=== PATIENT | male | born 1985 | race African-American/Black ===

== ENCOUNTER 2016-11-11 17:09 | Inpatient (IN) | payer OTHER ==
[~2016-11-11] VITALS: Ht 190.5 cm; Wt 146.1 kg
--- NOTE | ~2016-11-11 | S ---
[facility] [place] [address] SURGICAL PATH RPT PROCEDURE Name: DELMI BENDER Room #: 441-P ADM IN M.R.#: [id number] Admission: 11/11/16 Date of : 85 Discharge: Report #: [id number] Path Case #: [id number] PATHOLOGY REPORT COLLECTION DATE: 11/12/2016 RECEIVED DATE: 11/12/2016 SUBMITTING PHYS: Dr. David Burton OTHER PHYS: Dr. Dilan Son SPECIMEN(S) RECEIVED: A.Incarcerated ventral hernia contents * * * * * * * * * * * * FINAL DIAGNOSIS: Contents of incarcerated ventral hernia: - Fibroadipose and fibrovascular connective tissue showing marked congestion and reactive changes, compatible with incarcerated hernia. (IUV:mgr; d/t: 11/15/16) PATHOLOGIST: Reyna Boyd M.D. REPORT ELECTRONICALLY SIGNED BY: Reyna Boyd M.D. DATE/TIME: 11/15/2016 16:19 * * * * * * * * * * * * GROSS PATHOLOGY: Received in formalin labeled "Delmi Bender, contents of incarcerated ventral hernia," are multiple pieces of fibroadipose tissue measuring 15.5 x 10.9 x 4.5 cm. No nodules or lesions are identified. [employer] tissue is submitted in cassette A1. (CAA; 11/12/2016) CLINICAL HISTORY: Incarcerated ventral hernia INITIAL CPT CODE(S): A; 73960 Professional services performed by [facility] at [facility] [address] [place] [address] Technical services performed by [facility] at [address] [place] [id number]. [facility] [address] [place] [address] SURGICAL PATH RPT PROCEDURE Name: DELMI BENDER Room #: 441-P ADM IN M.R.#: [id number] Admission: 11/11/16 Date of : 85 Discharge: Report #: [id number] Path Case #: [id number] [address] PHONE: [phone] DIRECTOR: Min Cline M.D. * * * END OF REPORT * * *
--- NOTE | ~2016-11-11 | O ---
[facility] [place] [address] OPERATIVE REPORT Name: DELMI BENDER Room #: 441-P [facility] IN M.R.#: [id number] Admission: 11/11/16 Attend Phys: Dilan Subramanian DO Discharge: 11/16/16 Date of : 85 Report #: [id number] THIS REPORT FOR: //name// CC: [facility] physician/PCP Dilan Subramanian DATE OF SERVICE: 11/12/2016 PREOPERATIVE DIAGNOSIS: Incarcerated ventral hernia with small-bowel obstruction. POSTOPERATIVE DIAGNOSIS: Incarcerated ventral hernia with small-bowel obstruction. OPERATIVE PROCEDURE: Laparoscopic repair of ventral incarcerated hernia and release of small-bowel obstruction. SURGEON: David Burton MD. CHIEF WHARFINGER: John Sloan MD. SECOND LAST SAWYER: Josee Stern MS3 and Mendez Madrigal MS3. INDICATIONS: A 31-year-old male who has had a supraumbilical hernia for some period of time. The patient in the last 24-48 hours has developed severe abdominal cramping pains with nausea and vomiting. He sought medical attention and was found by CT scan to have a small-bowel obstruction with ventral hernia and bowel protruding into the hernia. He was admitted, refused NG suction and has had IV fluid resuscitation and now needs emergent laparoscopic ventral hernia repair. OPERATIVE PROCEDURE: The patient had thorough discussion of procedure, benefits and risks. He gave informed consent to proceed. He was given IV antibiotics. He was brought to the operating room suite and had satisfactory induction of general endotracheal anesthesia. The patient's entire abdomen was prepped and draped in usual sterile procedure with DuraPrep solution. Initially, a 0.5% plain Naropin was injected at all trocar sites, 30 mL was utilized during the procedure. Initially, a 5 mm Visiport with a 5.0 scope was utilized to gain access to the peritoneal cavity just below the left costochondral margin. Pneumoperitoneum was then established. A 12 mm port was placed in the midportion of the abdomen directly lateral to the umbilicus. An additional 5 mm port was placed above the anterior iliac, superior iliac spine process under direct vision. Small bowel was tightly entrapped in the ventral hernia which was in the supraumbilical position. The photographs were taken and made part of the medical record. The bowel was gently grasped and retracted and pulled from the incarcerated ventral hernia site. The bowel was released. There were some [facility] [address] [place] [address] OPERATIVE REPORT Name: DELMI BENDER Room #: 441-P [facility] IN M.R.#: [id number] Admission: 11/11/16 Attend Phys: Dilan Subramanian DO Discharge: 11/16/16 Date of : 85 Report #: [id number] bruising and early ischemic changes of the bowel. The bowel was viable. Photographs were taken and made part of the medical record. Two 5 mm ports were then placed laterally on the right side of the abdomen. The preperitoneal fat was taken down with the Sonicision and sharp dissection for distance of approximately 12 cm in the vertical superior inferior position. A second small hernia was encountered at the umbilicus. The largest hernia which included the entrapped bowel was approximately 2.5-3 cm in greatest dimensions. A 15 x 20 cm echo positioning patch was then utilized and placed into the peritoneal cavity. The balloon was inflated. The patch was tacked in place with SecureStrap circumferentially. Two of the SecureStrap were used, which included 50 tacks. The echo positioning device was brought out through the mid portion through the ventral hernia and the patch was securely tacked in position to the anterior abdominal wall under direct vision. After this was completed, the echo positioning system was removed. An 0 PDS suture was placed in [id number] fashion for closure of the left mid 12 mm port site under direct vision. Hemostasis was complete. All of the preperitoneal fat had been removed from the peritoneal cavity, the trocars were then removed under direct vision. The pneumoperitoneum was deflated. The 0 PDS suture ligated in place. Skin margins were approximated with subcuticular 4-0 Monocryl. Dermabond was applied. The estimated blood loss was less than 25 mL. The patient tolerated procedure well and he returned directly to recovery room in stable and satisfactory condition. By: [id number] David Burton MD, FACS /nt
--- NOTE | ~2016-11-11 | HC ---
[facility] [place] [address] CONSULTATION Name: DELMI BENDER Room #: 441-P [facility] IN M.R.#: [id number] Admission: 11/11/16 Attend Phys: Dilan Subramanian DO Discharge: 11/16/16 Date of : 85 Report #: [id number] THIS REPORT FOR: //name// CC: [facility] physician/PCP Dilan Subramanian DATE OF SERVICE: 11/16/2016 SUBJECTIVE: This patient is 4 days postop from laparoscopic ventral hernia repair with a postoperative ileus. The patient has begun to tolerate his diet, he is passing gas and stooling. OBJECTIVE: Wounds are clean. Abdomen nondistended, possible early seroma in the supraumbilical position. ASSESSMENT AND PLAN: The patient is now in satisfactory clinical status for discharge today. The patient will proceed for discharge with pain medication. He will return to the office in 2 weeks for followup care. <ELECTRONICALLY SIGNED> By: David Burton MD, FACS 11/17/16 1128 [id number] David Burton MD, FACS /nt
--- NOTE | ~2016-11-11 | HC ---
[facility] [place] [address] CONSULTATION Name: DELMI BENDER Room #: 441-P [facility] IN M.R.#: [id number] Admission: 11/11/16 Attend Phys: Dilan Subramanian DO Discharge: 11/16/16 Date of : 85 Report #: [id number] THIS REPORT FOR: //name// CC: [facility] physician/PCP Dilan Subramanian DATE OF SERVICE: 11/12/2016 HISTORY OF PRESENT ILLNESS: I have been asked to evaluate this 31-year-old male who presented to the Emergency Department with a chief complaint of abdominal pain. The patient has been vomiting for approximately 2 days. He reports that he has had chills and diaphoresis in recent days. The patient has a known abdominal hernia in the supraumbilical position. This mass, which was soft, has now become rather firm. He has been on a fasting diet of liquids only for a couple of weeks prior to recent days in the Emergency Department. The patient has been in a state of good health until the recent onset of the severe cramping abdominal pain with vomiting. PAST MEDICAL HISTORY: Consistent with only hypertension. MEDICATIONS: No medications at home. ALLERGIES: No known drug allergies. SOCIAL HISTORY: He works for [employer]. Works from his home. Denies tobacco or alcohol use. PAST SURGICAL HISTORY: No previous abdominal surgery. REVIEW OF SYSTEMS: A 10-point review of systems essentially negative except for recent change in gastrointestinal function associated with cramping abdominal pain, nausea and vomiting. PHYSICAL EXAMINATION: GENERAL: Reveals an alert, cooperative male, NG tube is in place, IV is infusing, he is afebrile. VITAL SIGNS: Within normal limits. HEENT: Within normal limits. Extraocular movements are intact. NECK: Supple, no adenopathy. LUNGS: Clear at the bases bilaterally. CARDIOVASCULAR: Regular rate and rhythm. ABDOMEN: A 6 cm supraumbilical mass, firm to palpation, tender to palpation. Remainder of the abdominal exam is within normal limits without guarding or rebound. EXTREMITIES: Bilateral motor symmetry. [facility] [address] [place] [address] CONSULTATION Name: DELMI BENDER Room #: [facility] IN M.R.#: [id number] Admission: 11/11/16 Attend Phys: Dilan Subramanian DO Discharge: 11/16/16 Date of : 85 Report #: [id number] Review of the CT scan is consistent with an incarcerated ventral supraumbilical hernia with small-bowel obstruction. LABORATORY DATA: Demonstrates lactic acid level of 1, white count of 11,500. Remainder of his labs are within normal limits. DIAGNOSTIC IMPRESSION: Incarcerated ventral supraumbilical hernia with small-bowel obstruction. I would plan laparoscopic repair of the incarcerated ventral hernia today. Thank you for allowing us to participate in his care and we will proceed with surgery today. <ELECTRONICALLY SIGNED> By: David Burton MD, FACS 11/17/16 [id number] David Burton MD, FACS /nt
[2016-11-11 18:09] LABS: HEMOGLOBIN 14.8 gm/dL (14.0-18.0); MCH 20.8 pg (26.0-34.0); MCHC 31.4 g/dL (28.0-37.0); MCV 66.2 fL (80.0-100.0); PLATELET COUNT 339 thou/uL (150-400); RDW 17.3 % (10.5-14.5); WBC 11.5 thou/uL (4.0-11.0)
[2016-11-11 18:11] LABS: MANUAL DIFF YES
[2016-11-11 18:12] LABS: CALCIUM 9.5 mg/dL (8.5-10.1); CREATININE 1.2 mg/dL (0.6-1.3); POTASSIUM 4.1 mmol/L (3.5-5.1)
[2016-11-11 18:40] LABS: ABSOLUTE NEUTROPHILS 9.5 thou/uL (1.4-8.2); LARGE PLATELETS FEW; TOTAL CELL COUNT 100
[2016-11-11 18:41] LABS: ANISOCYTOSIS 1+
[2016-11-12 05:32] LABS: HEMATOCRIT 45.4 % (42.0-52.0); HEMOGLOBIN 14.4 gm/dL (14.0-18.0); MCHC 31.8 g/dL (28.0-37.0); MCV 66.1 fL (80.0-100.0); RBC 6.86 mil/uL (4.50-6.00); RDW 17.3 % (10.5-14.5); WBC 14.1 thou/uL (4.0-11.0)
[2016-11-12 06:02] LABS: ALBUMIN 4.1 g/dL (3.4-5.0); CALCIUM 9.4 mg/dL (8.5-10.1); CREATININE 1.4 mg/dL (0.6-1.3); TOTAL BILIRUBIN 0.6 mg/dL (<0.1-1.0); TOTAL PROTEIN 8.1 g/dL (6.4-8.2)
[2016-11-14 04:36] LABS: HEMATOCRIT 39.1 % (42.0-52.0); MCH 21.1 pg (26.0-34.0); MCHC 31.8 g/dL (28.0-37.0); MCV 66.5 fL (80.0-100.0); RBC 5.89 mil/uL (4.50-6.00); RDW 17.1 % (10.5-14.5); WBC 13.6 thou/uL (4.0-11.0)
[2016-11-14 04:42] LABS: HEMOGLOBIN 12.4 gm/dL (14.0-18.0)
[2016-11-14 04:56] LABS: ALBUMIN 3.2 g/dL (3.4-5.0); CALCIUM 8.5 mg/dL (8.5-10.1); CREATININE 1.1 mg/dL (0.6-1.3); PHOSPHORUS 3.3 mg/dL (2.5-4.9); POTASSIUM 4.1 mmol/L (3.5-5.1)
[2016-11-15 06:04] LABS: HEMATOCRIT 37.1 % (42.0-52.0); HEMOGLOBIN 11.8 gm/dL (14.0-18.0); MCH 21.4 pg (26.0-34.0); MCHC 31.9 g/dL (28.0-37.0); MCV 66.9 fL (80.0-100.0); RBC 5.54 mil/uL (4.50-6.00); RDW 17.1 % (10.5-14.5); WBC 12.3 thou/uL (4.0-11.0)
[2016-11-15 06:17] LABS: ALBUMIN 2.9 g/dL (3.4-5.0); CALCIUM 8.4 mg/dL (8.5-10.1); CREATININE 1.1 mg/dL (0.6-1.3); PHOSPHORUS 3.3 mg/dL (2.5-4.9); POTASSIUM 3.9 mmol/L (3.5-5.1)
[2016-11-16] MEDS ORDERED: HYDROCODONE-APA1 TA1 PO (11:20)
[2016-11-16] MEDS ORDERED: ZOFRAN ODT4 MG DISSOLVE (13:31)
[2016-11-16] MEDS ORDERED: PROTONIX40 M1 PO (13:31)
[2016-11-16] MEDS ORDERED: COLACE100 MG PO (13:31)
== END 2016-11-16 15:47 | disposition home or self-care (01) | DRG 336 ==
LOC: ER 17:09 → EROBS 19:42 → 4S 19:42
PROVIDERS: Emergency Medicine; Hospitalist; Nurse Practitioner
PROC: 0DN84ZZ Release Small Intestine, Percutaneous Endoscopic Approach (ICD-10-PCS; principal; 2016-11-12)
PROC: 0WUF4JZ Supplement Abdominal Wall with Synthetic Substitute, Percutaneous Endoscopic Approach (ICD-10-PCS; principal; 2016-11-12)
DX: K43.6 Other and unspecified ventral hernia with obstruction, without gangrene (principal); N17.9 Acute kidney failure, unspecified; Z68.41 Body mass index [BMI] 40.0-44.9, adult; I10 Essential (primary) hypertension; E66.9 Obesity, unspecified; T39.395A Adverse effect of other nonsteroidal anti-inflammatory drugs [NSAID], initial encounter; N14.0 Analgesic nephropathy; Z79.899 Other long term (current) drug therapy; Y92.89 Other specified places as the place of occurrence of the external cause; Z87.891 Personal history of nicotine dependence
CPT/HCPCS: 10100; 50010; 50101; 50249; 50555; 50558; 50859; 50962; 50984; 51975; 52265; 53307; 54022; 54118; 56462; 56525; 56526; 57092; 62110; 62900; 70005

== ENCOUNTER 2018-10-07 15:54 | Emergency (ER) | payer OTHER ==
[~2018-10-07] VITALS: Ht 193 cm; Wt 122.5 kg
[~2018-10-07 15:54] MED LIST: COLACE100 MG PO; HYDROCODONE-APA1 TA1 PO; PROTONIX40 M1 PO; ZOFRAN ODT4 MG DISSOLVE
[2018-10-07 17:50] VITALS: BP 186/60
== END 2018-10-07 17:15 | disposition home or self-care (01) ==
LOC: ER 15:54
DX: R51 Headache (principal); G47.8 Other sleep disorders